=== PATIENT | female | born 1990 | race Caucasian/White ===

== ENCOUNTER 2017-06-08 11:01 | Emergency (ER) | payer OTHER, SELFPAY ==
[~2017-06-08] VITALS: Ht 172.7 cm; Wt 45.0 kg
[2017-06-08] MEDS ORDERED: FAMOTIDINE 20 MG TABLET ONE (11:15)
[2017-06-08] MEDS ORDERED: FAMOTIDINE 20 MG TABLET PO ONE (11:30)
[2017-06-08 12:40] VITALS: BP 113/70
== END 2017-06-08 12:42 | disposition home or self-care (01) ==
LOC: ED 12:15
DX: T78.3XXA Angioneurotic edema, initial encounter (principal); X58.XXXA Exposure to other specified factors, initial encounter; Z88.8 Allergy status to other drugs, medicaments and biological substances
CPT/HCPCS: 99283; J7512